=== PATIENT | male | born 1955 | race Caucasian/White ===

== ENCOUNTER 2024-12-22 17:12 | Inpatient (IN) | payer MEDICARE ==
[~2024-12-22] VITALS: Ht 175.3 cm; Wt 89.4 kg
[2024-12-22 21:00] VITALS: BP 139/77; PULSE 56; RESP 18; TEMP 97.5; O2SAT 96
[2024-12-22] MEDS ORDERED: DEXTROSE 50%-WATER 25 GM/50 ML SYRINGE IVP PRN (21:00)
[2024-12-22] MEDS ORDERED: INSULIN LISPRO 100 UNITS/ML SQ PRN (21:00)
[2024-12-22] MEDS: POLYETHYLENE GLYCOL 3350 17 GM PACKET PO SCH (21:15)
[2024-12-22] MEDS ORDERED: ONDANSETRON 4 MG TABLET PO PRN (21:15)
[2024-12-22] MEDS ORDERED: SENNOSIDES 8.6 MG TABLET PO PRN (21:15)
[2024-12-22] MEDS: OMEPRAZOLE 20 MG CAPSULE PO SCH (22:37)
[2024-12-22] MEDS: ETHYL ALCOHOL 62% ANTISEPTIC NASAL SANITIZER 0.6 ML AMPUL NASAL SCH (22:37)
[2024-12-22] MEDS: GABAPENTIN 400 MG CAPSULE PO SCH (22:38)
[2024-12-22] MEDS: NYSTATIN 15 GM POWDER BOTTLE TP SCH (22:38)
[2024-12-22 23:11] LABS: GLUCOMETER DEV NAME(LOC) 2WR.1D; GLUCOSE,POINT OF CARE 94 MG/DL (70-110)
[2024-12-23 01:27] VITALS: O2SAT 96
[2024-12-23 06:35] LABS: GLUCOMETER DEV NAME(LOC) 2WR.2C; GLUCOSE,POINT OF CARE 90 MG/DL (70-110)
[2024-12-23 06:56] LABS: PLATELET COUNT (AUTO) 82 K/uL (150-450); RED BLOOD CELL COUNT(AUTO) 3.55 MIL/uL (4.50-5.90); RED CELL DISTRIBUTION WIDTH 18.2 % (11.5-14.5); WHITE BLOOD COUNT (AUTO) 4.7 K/uL (4.5-11.0)
[2024-12-23 07:06] LABS: ASPARTATE AMINOTRANSFERASE 32 U/L (15-37); CALCIUM, TOTAL 9.2 mg/dL (8.8-10.5); CREATININE 0.73 mg/dL (0.60-1.30); GLOMERULAR FILTR. RATE CALC > 60 mL/min (>60); GLUCOSE,RANDOM 89 mg/dL (70-110); SODIUM SERUM 143 mmol/L (136-145); TOTAL PROTEIN, SERUM 5.6 g/dL (6.4-8.2); UREA NITROGEN, BLOOD 20 mg/dL (7-18)
[2024-12-23 08:00] VITALS: BP 142/80; PULSE 53; RESP 18; TEMP 97.7; O2SAT 98
[2024-12-23] MEDS: MULTIVITAMINS, THERAPEUTIC TABLET PO SCH (08:33)
[2024-12-23] MEDS: GABAPENTIN 300 MG CAPSULE PO SCH (08:33)
[2024-12-23] MEDS: BISACODYL 5 MG EC TABLET PO SCH (08:35)
[2024-12-23 12:05] LABS: GLUCOMETER DEV NAME(LOC) 2WR.2C; GLUCOSE,POINT OF CARE 118 MG/DL (70-110)
[2024-12-23 17:21] LABS: GLUCOMETER DEV NAME(LOC) 2WR.1D; GLUCOSE,POINT OF CARE 120 MG/DL (70-110)
[2024-12-23] MEDS ORDERED: INSULIN LISPRO 100 UNITS/ML SQ PRN (18:15)
[2024-12-23 20:00] VITALS: BP 140/88; PULSE 65; RESP 18; TEMP 98.1; O2SAT 98
[2024-12-23] MEDS: COLD CREAM, SKIN EMOLLIENT 340 GM JAR TP SCH (20:47)
[2024-12-23 20:55] LABS: GLUCOMETER DEV NAME(LOC) 2WR.2C; GLUCOSE,POINT OF CARE 146 MG/DL (70-110)
[2024-12-24 07:35] LABS: GLUCOMETER DEV NAME(LOC) 2WR.2C; GLUCOSE,POINT OF CARE 102 MG/DL (70-110)
[2024-12-24 08:00] VITALS: BP 126/76; PULSE 73; RESP 18; TEMP 97.7; O2SAT 100
[2024-12-24 11:51] LABS: GLUCOMETER DEV NAME(LOC) 2WR.1D; GLUCOSE,POINT OF CARE 95 MG/DL (70-110)
[2024-12-24 17:45] LABS: GLUCOMETER DEV NAME(LOC) 2WR.1D; GLUCOSE,POINT OF CARE 112 MG/DL (70-110)
[2024-12-24 20:00] VITALS: BP 125/94; PULSE 70; RESP 18; TEMP 98.1; O2SAT 99
[2024-12-24 23:26] LABS: GLUCOMETER DEV NAME(LOC) 2WR.2C; GLUCOSE,POINT OF CARE 119 MG/DL (70-110)
[2024-12-25 06:45] LABS: GLUCOMETER DEV NAME(LOC) 2WR.2C; GLUCOSE,POINT OF CARE 91 MG/DL (70-110)
[2024-12-25 08:00] VITALS: BP 147/91; PULSE 57; RESP 18; TEMP 97.7; O2SAT 100
[2024-12-25 12:46] LABS: GLUCOMETER DEV NAME(LOC) 2WR.1D; GLUCOSE,POINT OF CARE 103 MG/DL (70-110)
[2024-12-25 16:55] LABS: GLUCOMETER DEV NAME(LOC) 2WR.1D; GLUCOSE,POINT OF CARE 122 MG/DL (70-110)
[2024-12-25 20:00] VITALS: BP 136/86; PULSE 59; RESP 18; TEMP 98.1; O2SAT 98
[2024-12-25 22:35] LABS: GLUCOMETER DEV NAME(LOC) 2WR.1D; GLUCOSE,POINT OF CARE 124 MG/DL (70-110)
[2024-12-26 07:21] LABS: GLUCOMETER DEV NAME(LOC) 2WR.2C; GLUCOSE,POINT OF CARE 113 MG/DL (70-110)
[2024-12-26 08:00] VITALS: BP 165/85; PULSE 55; RESP 18; TEMP 98.4; O2SAT 97
[2024-12-26 20:30] VITALS: BP 138/89; PULSE 63; RESP 18; TEMP 98.4; O2SAT 97
[2024-12-26] MEDS: MELATONIN 3 MG TABLET PO PRN (21:02)
[2024-12-26 21:03] VITALS: O2SAT 97
[2024-12-27 07:30] LABS: GLUCOMETER DEV NAME(LOC) 2WR.1D; GLUCOSE,POINT OF CARE 108 MG/DL (70-110)
[2024-12-27 08:00] VITALS: BP 144/75; PULSE 56; RESP 17; TEMP 97.5; O2SAT 95
[2024-12-27 19:55] VITALS: BP 139/87; PULSE 72; RESP 18; TEMP 97.5; O2SAT 100
[2024-12-27 20:05] VITALS: O2SAT 100
[2024-12-28 07:05] LABS: GLUCOMETER DEV NAME(LOC) 2WR.2C; GLUCOSE,POINT OF CARE 135 MG/DL (70-110)
[2024-12-28 07:30] VITALS: BP 139/81; PULSE 56; RESP 18; TEMP 97.5; O2SAT 98
[2024-12-28 10:32] VITALS: O2SAT 98
[2024-12-28] MEDS: ACETAMINOPHEN 325 MG TABLET PO PRN (13:09)
[2024-12-28 20:00] VITALS: BP 134/85; PULSE 76; RESP 18; TEMP 97.5; O2SAT 97
[2024-12-29 06:56] LABS: GLUCOMETER DEV NAME(LOC) 2WR.2C; GLUCOSE,POINT OF CARE 103 MG/DL (70-110)
[2024-12-29 08:00] VITALS: BP 167/70; PULSE 52; RESP 19; TEMP 97.7; O2SAT 98
[2024-12-29 09:30] VITALS: BP 138/87; PULSE 55; RESP 18; O2SAT 97
[2024-12-29 19:00] LABS: APPEARANCE,URINE CLEAR (CLEAR); GLUCOSE, URINE (UA) NEGATIVE (NEGATIVE); LEUKOCYTE ESTERASE ,URINE LARGE (NEGATIVE); NITRATE,URINE NEGATIVE (NEGATIVE); OCCULT BLOOD,URINE MODERATE (NEGATIVE); SPECIFIC GRAVITIY, URINE 1.010 (1.003-1.030)
[2024-12-29 19:11] LABS: SQUAMOUS EPITHELIAL CELL,UR None Seen /LPF (None Seen)
[2024-12-29 20:41] VITALS: BP 142/81; PULSE 64; RESP 20; TEMP 97.9; O2SAT 98
[2024-12-29 22:18] VITALS: O2SAT 98
[2024-12-30 07:10] LABS: GLUCOMETER DEV NAME(LOC) 2WR.2C; GLUCOSE,POINT OF CARE 110 MG/DL (70-110)
[2024-12-30 07:43] LABS: CALCIUM, TOTAL 9.0 mg/dL (8.8-10.5); CREATININE 0.70 mg/dL (0.60-1.30); GLOMERULAR FILTR. RATE CALC > 60 mL/min (>60); GLUCOSE,RANDOM 90 mg/dL (70-110); SODIUM SERUM 142 mmol/L (136-145); UREA NITROGEN, BLOOD 11 mg/dL (7-18)
[2024-12-30 08:17] LABS: PLATELET COUNT (AUTO) 97 K/uL (150-450); RED BLOOD CELL COUNT(AUTO) 3.44 MIL/uL (4.50-5.90); RED CELL DISTRIBUTION WIDTH 17.9 % (11.5-14.5); WHITE BLOOD COUNT (AUTO) 7.6 K/uL (4.5-11.0)
[2024-12-30 08:19] VITALS: BP 139/81; PULSE 64; RESP 18; TEMP 97.9; O2SAT 97
[2024-12-30 08:20] VITALS: O2SAT 97
[2024-12-30] MEDS: GABAPENTIN 100 MG CAPSULE PO SCH (08:43)
[2024-12-30] MEDS: NITROFURANTOIN MONOHYD/M-CRYST 100 MG CAPSULE [MACROBID] PO SCH (11:16)
[2024-12-30 20:02] VITALS: BP 140/82; PULSE 69; RESP 18; TEMP 98.1; O2SAT 99
[2024-12-30 21:40] VITALS: O2SAT 99
[2024-12-31 07:50] LABS: GLUCOMETER DEV NAME(LOC) 2WR.1D; GLUCOSE,POINT OF CARE 98 MG/DL (70-110)
[2024-12-31 08:00] VITALS: BP 134/80; PULSE 58; RESP 18; TEMP 97.5; O2SAT 100
[2024-12-31 20:14] VITALS: BP 138/75; PULSE 62; RESP 18; TEMP 98.1; O2SAT 98
[2025-01-01 06:56] LABS: GLUCOMETER DEV NAME(LOC) 2WR.1D; GLUCOSE,POINT OF CARE 91 MG/DL (70-110)
[2025-01-01 08:00] VITALS: BP 150/85; PULSE 57; RESP 18; TEMP 97.5; O2SAT 98
[2025-01-01 15:27] VITALS: BP 142/81
[2025-01-01] MEDS: NITROFURANTOIN MONOHYD/M-CRYST 100 MG CAPSULE [MACROBID] PO ONE (18:17)
[2025-01-01 20:30] VITALS: BP 133/77; PULSE 78; RESP 18; TEMP 98.4; O2SAT 98
[2025-01-02 07:01] LABS: GLUCOMETER DEV NAME(LOC) 2WR.1D; GLUCOSE,POINT OF CARE 112 MG/DL (70-110)
[2025-01-02 08:00] VITALS: BP 145/79; PULSE 61; RESP 18; TEMP 97.5; O2SAT 98
[2025-01-02 15:55] VITALS: BP 142/82; PULSE 67; RESP 18
[2025-01-02 20:20] VITALS: BP 151/78; PULSE 54; RESP 18; TEMP 98.1; O2SAT 98
[2025-01-02 22:47] LABS: GLUCOMETER DEV NAME(LOC) 2WR.2C; GLUCOSE,POINT OF CARE 106 MG/DL (70-110)
[2025-01-02 23:31] VITALS: O2SAT 98
[2025-01-03 07:16] LABS: GLUCOMETER DEV NAME(LOC) 2WR.2C; GLUCOSE,POINT OF CARE 110 MG/DL (70-110)
[2025-01-03 08:00] VITALS: BP 151/88; PULSE 63; RESP 19; TEMP 98.2; O2SAT 97
[2025-01-03 20:00] VITALS: BP 141/86; PULSE 67; RESP 18; TEMP 97.7; O2SAT 97; O2SAT 98
[2025-01-04 06:45] LABS: GLUCOMETER DEV NAME(LOC) 2WR.2C; GLUCOSE,POINT OF CARE 111 MG/DL (70-110)
[2025-01-04 08:00] VITALS: BP 141/83; PULSE 58; RESP 18; TEMP 98.1; O2SAT 98
[2025-01-04 20:00] VITALS: BP 131/83; PULSE 67; RESP 18; TEMP 98; O2SAT 96
[2025-01-05 07:00] LABS: GLUCOMETER DEV NAME(LOC) 2WR.1D; GLUCOSE,POINT OF CARE 130 MG/DL (70-110)
[2025-01-05 08:00] VITALS: BP 131/79; PULSE 56; RESP 19; TEMP 97.7; O2SAT 97
[2025-01-05] MEDS ORDERED: OMEP20CA12 PO (11:57)
[2025-01-05] MEDS ORDERED: TRAZ-252 PO (11:57)
[2025-01-05] MEDS ORDERED: DEXA1 PO (11:57)
[2025-01-05] MEDS ORDERED: MULT-14 PO (11:57)
[2025-01-05] MEDS ORDERED: GABA-1201 PO (11:57)
[2025-01-05] MEDS ORDERED: POLY17PO62 PO (11:57)
[2025-01-05 20:00] VITALS: O2SAT 97
[2025-01-05 20:01] VITALS: BP 138/85; PULSE 66; RESP 18; TEMP 98.1; O2SAT 97
[2025-01-06 08:00] VITALS: BP 141/77; PULSE 60; RESP 19; TEMP 98.1; O2SAT 100
[2025-01-06 08:45] LABS: GLUCOMETER DEV NAME(LOC) 2WR.2C; GLUCOSE,POINT OF CARE 143 MG/DL (70-110)
== END 2025-01-06 14:27 | disposition home or self-care (01) | DRG 951 ==
LOC: 2WR 20:10
PROVIDERS: ADMIT Physical Medicine & Rehabilitation; ATTEND Physical Medicine & Rehabilitation
DX: Z74.09 Other reduced mobility (principal); A41.51 Sepsis due to Escherichia coli [E. coli]; G81.91 Hemiplegia, unspecified affecting right dominant side; G93.40 Encephalopathy, unspecified; R47.01 Aphasia; R26.9 Unspecified abnormalities of gait and mobility; R26.89 Other abnormalities of gait and mobility; I10 Essential (primary) hypertension; G62.9 Polyneuropathy, unspecified; D69.6 Thrombocytopenia, unspecified; G47.9 Sleep disorder, unspecified; N40.0 Benign prostatic hyperplasia without lower urinary tract symptoms; R73.03 Prediabetes; G47.00 Insomnia, unspecified; R41.89 Other symptoms and signs involving cognitive functions and awareness; R53.83 Other fatigue; R32 Unspecified urinary incontinence; R53.1 Weakness; R41.0 Disorientation, unspecified; Z66 Do not resuscitate; R53.81 Other malaise; Z87.442 Personal history of urinary calculi; Z92.3 Personal history of irradiation; Z79.899 Other long term (current) drug therapy; Z85.841 Personal history of malignant neoplasm of brain; Z86.19 Personal history of other infectious and parasitic diseases; Z88.8 Allergy status to other drugs, medicaments and biological substances; Z88.1 Allergy status to other antibiotic agents
CPT/HCPCS: 80048; 80053; 81001; 82962; 85025; 87081; 87086; 92507; 92523; 93970; 97110; 97112; 97116; 97150; 97163; 97167; 97530; 97535; 99366; J8540

== ENCOUNTER 2025-04-04 13:54 | Inpatient (IN) | payer MEDICARE ==
[~2025-04-04] VITALS: Ht 175.3 cm; Wt 88.2 kg
[~2025-04-04 13:54] MED LIST: DEXA1 PO; GABA-1201 PO; MULT-14 PO; OMEP20CA12 PO; POLY17PO62 PO; TRAZ-252 PO
[2025-04-04 20:00] VITALS: BP 131/87; PULSE 76; RESP 18; TEMP 97.8; O2SAT 98
[2025-04-04] MEDS ORDERED: ACETAMINOPHEN 325 MG TABLET PO PRN (21:00)
[2025-04-04] MEDS ORDERED: PEG 400/HYPROMELLOSE/GLYCERIN 15 ML OPHTHALMIC SOLUTION OU PRN (21:15)
[2025-04-04] MEDS ORDERED: NYSTATIN 15 GM POWDER BOTTLE TP PRN (21:30)
[2025-04-04] MEDS ORDERED: ONDANSETRON 4 MG TABLET PO PRN (21:30)
[2025-04-04] MEDS: GABAPENTIN 400 MG CAPSULE PO SCH (21:56)
[2025-04-04] MEDS: ETHYL ALCOHOL 62% ANTISEPTIC NASAL SANITIZER 0.6 ML AMPUL NASAL SCH (21:56)
[2025-04-04] MEDS: APIXABAN 2.5 MG TABLET PO SCH (21:57)
[2025-04-05] MEDS: OMEPRAZOLE 20 MG CAPSULE PO SCH (06:38)
[2025-04-05 07:32] LABS: RED BLOOD CELL COUNT(AUTO) 4.06 MIL/uL (4.50-5.90); RED CELL DISTRIBUTION WIDTH 17.5 % (11.5-14.5); WHITE BLOOD COUNT (AUTO) 5.1 K/uL (4.5-11.0)
[2025-04-05 07:52] LABS: ASPARTATE AMINOTRANSFERASE 21 U/L (15-37); CALCIUM, TOTAL 9.0 mg/dL (8.8-10.5); CREATININE 0.63 mg/dL (0.60-1.30); GLOMERULAR FILTR. RATE CALC > 60 mL/min (>60); GLUCOSE,RANDOM 94 mg/dL (70-110); SODIUM SERUM 142 mmol/L (136-145); TOTAL PROTEIN, SERUM 5.9 g/dL (6.4-8.2); UREA NITROGEN, BLOOD 15 mg/dL (7-18)
[2025-04-05 07:57] LABS: PLATELET COUNT (AUTO) 85 K/uL (150-450); PLATELET MORPHOLOGY COMMENT LARGE PLTS PRESENT
[2025-04-05 08:00] VITALS: O2SAT 97
[2025-04-05] MEDS: TAMSULOSIN HCL 0.4 MG CAPSULE PO SCH (08:24)
[2025-04-05] MEDS: MULTIVITAMINS, THERAPEUTIC TABLET PO SCH (08:24)
[2025-04-05 08:56] VITALS: BP 149/97; PULSE 60; RESP 18; TEMP 97.7; O2SAT 97
[2025-04-05 11:16] VITALS: BP 139/95; PULSE 77; RESP 18; TEMP 97.5; O2SAT 99
[2025-04-05 20:00] VITALS: O2SAT 99
[2025-04-05 21:00] VITALS: BP 143/88; PULSE 73; RESP 18; TEMP 97.7; O2SAT 99
[2025-04-06 08:00] VITALS: O2SAT 98
[2025-04-06 09:00] VITALS: BP 148/83; PULSE 61; RESP 18; TEMP 98.6; O2SAT 98
[2025-04-06] MEDS: LACOSAMIDE 100 MG TABLET PO SCH (13:22)
[2025-04-06 20:02] VITALS: BP 136/86; PULSE 77; RESP 18; TEMP 97.5; O2SAT 99
[2025-04-06 20:18] VITALS: O2SAT 99
[2025-04-07 08:00] VITALS: BP 145/91; PULSE 63; RESP 17; TEMP 97.5; O2SAT 96; O2SAT 99
[2025-04-07 09:00] VITALS: BP 145/71; PULSE 63; RESP 17; TEMP 97.5; O2SAT 99
[2025-04-07] MEDS: SENNOSIDES 8.6 MG TABLET PO PRN (19:56)
[2025-04-07 20:02] VITALS: BP 136/83; PULSE 74; RESP 18; TEMP 97.7; O2SAT 100
[2025-04-07 20:05] VITALS: O2SAT 99
[2025-04-08 08:00] VITALS: BP 153/93; PULSE 63; RESP 18; TEMP 97.7; O2SAT 100
[2025-04-08 11:01] VITALS: BP 134/80; PULSE 57
[2025-04-08] MEDS: BISACODYL 5 MG EC TABLET PO PRN (17:51)
[2025-04-08 20:00] VITALS: O2SAT 98
[2025-04-08 20:01] VITALS: BP 143/88; PULSE 77; RESP 16; TEMP 97.9; O2SAT 98
[2025-04-08] MEDS: TAMSULOSIN HCL 0.4 MG CAPSULE PO SCH (20:12)
[2025-04-09] MEDS: POLYETHYLENE GLYCOL 3350 17 GM PACKET PO PRN (06:45)
[2025-04-09 08:00] VITALS: BP 134/92; PULSE 62; RESP 18; TEMP 98.4; O2SAT 96
[2025-04-09 10:30] VITALS: BP 132/110; PULSE 76; RESP 18; O2SAT 95
[2025-04-09 10:40] VITALS: BP 133/88; PULSE 78; RESP 18; O2SAT 96
[2025-04-09 11:35] LABS: GLUCOMETER DEV NAME(LOC) 2WR.2C; GLUCOSE,POINT OF CARE 129 MG/DL (70-110)
[2025-04-09 12:24] LABS: RED BLOOD CELL COUNT(AUTO) 4.60 MIL/uL (4.50-5.90); RED CELL DISTRIBUTION WIDTH 18.9 % (11.5-14.5); WHITE BLOOD COUNT (AUTO) 6.9 K/uL (4.5-11.0)
[2025-04-09 12:32] LABS: CALCIUM, TOTAL 9.3 mg/dL (8.8-10.5); CREATININE 0.92 mg/dL (0.60-1.30); GLOMERULAR FILTR. RATE CALC > 60 mL/min (>60); GLUCOSE,RANDOM 100 mg/dL (70-110); SODIUM SERUM 138 mmol/L (136-145); UREA NITROGEN, BLOOD 19 mg/dL (7-18)
[2025-04-09 13:12] LABS: PLATELET COUNT (AUTO) 75 K/uL (150-450); RBC MORPHOLOGY COMMENT ABNORMAL RBC MORPH
[2025-04-09] MEDS ORDERED: LORazepam 2 MG/ML VIAL IVP PRN (14:30)
[2025-04-09 20:00] VITALS: BP 134/87; PULSE 88; RESP 18; TEMP 97.3; O2SAT 98
[2025-04-09] MEDS: LACOSAMIDE 100 MG TABLET PO SCH (20:08)
[2025-04-10 07:01] VITALS: BP 142/85; PULSE 102; RESP 18; TEMP 98.4; O2SAT 95
[2025-04-10 08:00] VITALS: BP 142/72; PULSE 106; RESP 18; TEMP 97.9; O2SAT 97
[2025-04-10 08:53] VITALS: BP 126/91; PULSE 121; RESP 18; TEMP 100.8; O2SAT 96
[2025-04-10 09:20] VITALS: TEMP 100.2
[2025-04-10 09:40] VITALS: BP 136/76; PULSE 111; RESP 17; TEMP 98.4; O2SAT 94
[2025-04-10] MEDS ORDERED: SODIUM CHLORIDE 0.9% 1,000 ML ONE (09:44)
[2025-04-10] MEDS ORDERED: SODIUM CHLORIDE 0.9% 2,650 ML IV ONE (09:45)
[2025-04-10 10:15] LABS: GLUCOMETER DEV NAME(LOC) 2WR.2C; GLUCOSE,POINT OF CARE 91 MG/DL (70-110)
[2025-04-10 10:19] LABS: PLATELET COUNT (AUTO) 83 K/uL (150-450); RED BLOOD CELL COUNT(AUTO) 4.15 MIL/uL (4.50-5.90); RED CELL DISTRIBUTION WIDTH 17.2 % (11.5-14.5); WHITE BLOOD COUNT (AUTO) 9.5 K/uL (4.5-11.0)
[2025-04-10 10:27] LABS: CALCIUM, TOTAL 8.9 mg/dL (8.8-10.5); CREATININE 0.67 mg/dL (0.60-1.30); GLOMERULAR FILTR. RATE CALC > 60 mL/min (>60); GLUCOSE,RANDOM 93 mg/dL (70-110); SODIUM SERUM 141 mmol/L (136-145); UREA NITROGEN, BLOOD 19 mg/dL (7-18)
[2025-04-10 10:52] LABS: LACTIC ACID 0.9 mmol/L (0.4-2.0)
[2025-04-10] MEDS ORDERED: APIX2.5T PO (18:30)
[2025-04-10] MEDS ORDERED: PANT-31 PO (18:30)
[2025-04-10] MEDS ORDERED: AMLO-258 PO (18:30)
[2025-04-10] MEDS ORDERED: LEVE-71 PO (18:30)
[2025-04-10] MEDS ORDERED: TAMS0.4C94 PO (18:30)
[2025-04-10] MEDS ORDERED: LACO100T14 PO (18:30)
== END 2025-04-10 10:03 | disposition short-term general hospital (02) | DRG 70 ==
LOC: 2WR 20:13
PROVIDERS: ADMIT Physical Medicine & Rehabilitation; ATTEND Physical Medicine & Rehabilitation
DX: G93.40 Encephalopathy, unspecified (principal); I26.99 Other pulmonary embolism without acute cor pulmonale; R47.01 Aphasia; C71.9 Malignant neoplasm of brain, unspecified; Z74.09 Other reduced mobility; R26.9 Unspecified abnormalities of gait and mobility; R41.89 Other symptoms and signs involving cognitive functions and awareness; R13.10 Dysphagia, unspecified; H53.40 Unspecified visual field defects; R47.1 Dysarthria and anarthria; I10 Essential (primary) hypertension; R73.03 Prediabetes; E88.09 Other disorders of plasma-protein metabolism, not elsewhere classified; N40.0 Benign prostatic hyperplasia without lower urinary tract symptoms; G62.9 Polyneuropathy, unspecified; F51.04 Psychophysiologic insomnia; R32 Unspecified urinary incontinence; D69.6 Thrombocytopenia, unspecified; R56.9 Unspecified convulsions; F32.9 Major depressive disorder, single episode, unspecified; R40.0 Somnolence; R53.1 Weakness; Z85.841 Personal history of malignant neoplasm of brain; Z86.711 Personal history of pulmonary embolism; Z88.0 Allergy status to penicillin; Z79.899 Other long term (current) drug therapy; Z88.8 Allergy status to other drugs, medicaments and biological substances
CPT/HCPCS: 80048; 80053; 82962; 83605; 84145; 85025; 87040; 87081; 92507; 92523; 92526; 93005; 97112; 97163; 97167; 97530; 97535; 99366; G0482; J7030; J8540

== ENCOUNTER 2025-04-10 10:04 | Emergency (ER) | payer MEDICARE ==
[~2025-04-10] VITALS: Ht 175.3 cm; Wt 91.2 kg
[2025-04-10] MEDS: ACETAMINOPHEN 1000 MG/ISO-OSM 100 ML IV ONE (11:03)
[2025-04-10] MEDS: *CLINICAL-LEVOFLOXACIN IVPB DOSING CLINICAL ONE (11:58)
[2025-04-10] MEDS: SODIUM CHLORIDE 0.9% 2,750 ML IV ONE (12:17)
[2025-04-10 12:33] LABS: APPEARANCE,URINE CLEAR (CLEAR); GLUCOSE, URINE (UA) NEGATIVE (NEGATIVE); LEUKOCYTE ESTERASE ,URINE NEGATIVE (NEGATIVE); NITRATE,URINE NEGATIVE (NEGATIVE); OCCULT BLOOD,URINE MODERATE (NEGATIVE); SPECIFIC GRAVITIY, URINE 1.010 (1.003-1.030)
[2025-04-10 13:00] LABS: ASPARTATE AMINOTRANSFERASE 30.0 U/L (15-37); TOTAL PROTEIN, SERUM 6.2 g/dL (6.4-8.2)
[2025-04-10] MEDS: LEVOFLOXACIN 750 MG/D5% WATER 150 ML IV ONE (13:28)
[2025-04-10] MEDS: *CLINICAL-CEFEPIME DOSING CLINICAL ONE (17:17)
[2025-04-10] MEDS: CEFEPIME HCL 1 GM in DEXTROSE 5%-WATER 50 ML IV ONE (17:55)
[2025-04-10] MEDS: VANCOMYCIN 1.5 GM/WATER(PEG) 300 ML IV ONE (18:02)
[2025-04-10] MEDS ORDERED: AMLO-258 PO (18:30)
[2025-04-10] MEDS ORDERED: TAMS0.4C94 PO (18:30)
[2025-04-10] MEDS ORDERED: LEVE-71 PO (18:30)
[2025-04-10] MEDS ORDERED: APIX2.5T PO (18:30)
[2025-04-10] MEDS ORDERED: PANT-31 PO (18:30)
[2025-04-10] MEDS ORDERED: LACO100T14 PO (18:30)
[2025-04-10] MEDS: LACOSAMIDE 100 MG TABLET PO ONE (20:32)
[2025-04-10] MEDS: GABAPENTIN 400 MG CAPSULE PO ONE (20:32)
[2025-04-10 23:53] VITALS: BP 146/86; PULSE 92; RESP 23; TEMP 99.3; O2SAT 99
== END 2025-04-10 23:57 | disposition short-term general hospital (02) ==
LOC: EMS 10:06
DX: R41.82 Altered mental status, unspecified (principal); R50.9 Fever, unspecified; G40.909 Epilepsy, unspecified, not intractable, without status epilepticus; I10 Essential (primary) hypertension; L08.9 Local infection of the skin and subcutaneous tissue, unspecified; Z79.01 Long term (current) use of anticoagulants; Z79.52 Long term (current) use of systemic steroids; Z85.841 Personal history of malignant neoplasm of brain; Z86.711 Personal history of pulmonary embolism; Z79.899 Other long term (current) drug therapy; Z98.890 Other specified postprocedural states; Z86.718 Personal history of other venous thrombosis and embolism; Z88.0 Allergy status to penicillin
CPT/HCPCS: 99291; 70450; 96365; 96366; 71045; 96367; 96361; 96375; 80076; 81001; 36415; 71250; 74150; 93005; 96368; 72192; J0692; J1200; J1956; J7060; J7030; J0131; J3490